=== PATIENT | male | born 1965 | race Two or more races ===

== ENCOUNTER 2019-01-03 21:04 | Emergency (ER) | payer BC ==
[~2019-01-03] VITALS: Ht 160 cm; Wt 68.0 kg
[2019-01-03 21:15] VITALS: BP 119/77
--- NOTE | 2019-01-03 21:15 | NUR ---
ED Nurse Note: pt came in with relative with chief complaint anxiety attack. stated stated that he was advised by the pcp that he was hypertension. pt blood pressure is in normal values. pt denies any pain. ermd on bedside. will continue to monitor.
[2019-01-03] MEDS ORDERED: ATIVAN1 MG ORAL (21:27)
--- NOTE | 2019-01-03 21:29 | Emergency Room Report ---
History of Present Illness General Chief Complaint: Dizziness Source: Patient Present Illness HPI This is a 53-year-old male with a history anxiety. He presents with chief complaint of dizziness and anxiety. Onset around noon today. Was mild but after dinner more severe. He felt palpitation. [place] dizziness and lightheadedness. He felt numbness to his whole body. Similar symptom in the past but today was worse. Denies any chest pain. No nausea no vomiting. No fever or chills. No suicidal thought homicidal thought. Denies any alcohol drugs. Allergies: Coded Allergies: No Known Allergies (Unverified , 01/03/19) Patient History Past Medical History: see triage record, old chart reviewed Past Surgical History: none Pertinent Family History: none Social History: Denies: smoking Immunizations: other Reviewed Nursing Documentation: PMH: Agreed; PSxH: Agreed Nursing Documentation-PMH History Of Psychiatric Problem: Yes - ANXIETY Review of Systems Eye: Denies: eye pain, blurred vision ENT: Denies: ear pain, nose congestion, throat swelling Respiratory: Denies: cough, shortness of breath Cardiovascular: Reports: palpitations; Denies: chest pain Gastrointestinal: Denies: abdominal pain, diarrhea, nausea, vomiting Musculoskeletal: Denies: back pain, joint pain Skin: Denies: rash Neurological: Reports: dizziness; Denies: headache, numbness Endocrine: Denies: increased thirst, increased urine Hematologic/Lymphatic: Denies: easy bruising All Other Systems: negative except mentioned in HPI Physical Exam Vital Signs Date Time Temp Pulse Resp B/P (MAP) Pulse Ox O2 Delivery O2 Flow Rate FiO2 01/03/19 21:07 98.1 61 18 119/77 97 Room Air vitals normal Sp02 EP Interpretation: reviewed, normal General Appearance: well appearing, no apparent distress, alert Head: normocephalic, atraumatic Eyes: bilateral eye PERRL, bilateral eye EOMI ENT: hearing grossly normal, normal pharynx Neck: full range of motion, supple, no meningismus Respiratory: chest non-tender, lungs clear, normal breath sounds Cardiovascular #1: regular rate, rhythm, no murmur Gastrointestinal: normal bowel sounds, non tender, no mass, no organomegaly, no bruit, non-distended Musculoskeletal: back normal, gait/station normal, normal range of motion Psychiatric: mood/affect normal Skin: warm/dry Medical Decision Making Diagnostic Impression: Primary Impression: Anxiety ER Course Patient with symptoms consistent with anxiety/panic attack. No evidence of ACS , PE, dissection, TIA to name a few. Last Vital Signs Date Time Temp Pulse Resp B/P (MAP) Pulse Ox O2 Delivery O2 Flow Rate FiO2 01/03/19 21:07 98.1 61 18 119/77 97 Room Air Status: improved Disposition: HOME, SELF-CARE Condition: Stable Scripts Lorazepam* (ATIVAN*) 1 Mg Tablet 1 MG ORAL THREE TIMES A DAY for anxiety, #15 TAB Prov: Anselmo Goyal MD 01/03/19 Referrals: NON PHYSICIAN (PCP) Additional Instructions: Follow-up with your doctor in 7 days. Return if symptom worsen. Anselmo Goyal MD Jan 03, 2019 21:29
[2019-01-03] MEDS ORDERED: LORazepam 1mg tab ORAL ONE (21:30)
[2019-01-03 21:37] VITALS: BP 119/77
--- NOTE | 2019-01-03 21:37 | NUR ---
ER DISCHARGE NOTE: Patient is cleared to be discharged per ERMD, pt is aox4, on room air, with stable vital signs. pt was given dc and prescription instructions, pt was able to verbalize understanding, pt id band removed without complications. pt is able to ambulate with steady gait. pt took all belongings.
== END 2019-01-03 21:37 | disposition home or self-care (01) ==
LOC: EMR 21:22
DX: F41.9 Anxiety disorder, unspecified (principal)
CPT/HCPCS: 99282